=== PATIENT | male | born 1985 | race Caucasian/White ===

== ENCOUNTER 2018-04-04 22:37 | Emergency (ER) | payer BC ==
[2018-04-04] MEDS ORDERED: GLUCAGON 1 MG/VIAL ONE (22:55)
--- NOTE | 2018-04-04 23:37 | EDPHYS ---
Physician Documentation [facility] Name: Erik Bernal Age: 32 yrs Sex: Male : 1985 Arrival Date: 04/04/2018 Time: 22:38 Bed 19 Private MD: ED Physician Markos Otoole HPI: 04/04 23:34 This 32 yrs old Male presents to ER via Ambulatory with complaints of Foreign gs Body In Throat. 23:34 Onset: The symptoms/episode began/occurred acutely, just prior to arrival. The symptoms gs do not radiate. Associated signs and symptoms: Pertinent negatives: nausea and vomiting. The symptoms are described as sharp. Modifying factors: The symptoms are alleviated by nothing, the symptoms are aggravated by drinking liquids. Severity of pain: At its worst the pain was moderate in the emergency department the pain is unchanged. The patient has experienced similar episodes in the past, several times. Historical: - Allergies: 22:55 No Known Allergies; tl2 - Home Meds: 22:55 None [Active]; tl2 - PMHx: 22:55 None; tl2 - Immunization history:: Adult Immunizations up to date. - Social history:: Smoking status: Patient uses tobacco products, chewing tobacco. - Ebola Screening: : No symptoms or risks identified at this time. ROS: 23:34 All other systems are negative. gs Exam: 23:34 Head/Face: Normocephalic, atraumatic. Eyes: Pupils equal round and reactive to light, gs extra-ocular motions intact. Lids and lashes normal. Conjunctiva and sclera are non-icteric and not injected. Cornea within normal limits. Periorbital areas with no swelling, redness, or edema. ENT: Nares patent. No nasal discharge, no septal abnormalities noted. Tympanic membranes are normal and external auditory canals are clear. Oropharynx with no redness, swelling, or masses, exudates, or evidence of obstruction, uvula midline. Mucous membranes moist. Neck: Trachea midline, no thyromegaly or masses palpated, and no cervical lymphadenopathy. Supple, full range of motion without nuchal rigidity, or vertebral point tenderness. No Meningismus. Chest/axilla: Normal chest wall appearance and motion. Nontender with no deformity. No lesions are appreciated. Cardiovascular: Regular rate and rhythm with a normal S1 and S2. No gallops, murmurs, or rubs. Normal PMI, no JVD. No pulse deficits. Respiratory: Lungs have equal breath sounds bilaterally, clear to auscultation and percussion. No rales, rhonchi or wheezes noted. No increased work of breathing, no retractions or nasal flaring. Abdomen/GI: Soft, non-tender, with normal bowel sounds. No distension or tympany. No guarding or rebound. No evidence of tenderness throughout. Back: No spinal tenderness. No costovertebral tenderness. Full range of motion. Skin: Warm, dry with normal turgor. Normal color with no rashes, no lesions, and no evidence of cellulitis. MS/ Extremity: Pulses equal, no cyanosis. Neurovascular intact. Full, normal range of motion. Neuro: Awake and alert, GCS 15, oriented to person, place, time, and situation. Cranial nerves II-XII grossly intact. Motor strength 5/5 in all extremities. Sensory grossly intact. Cerebellar exam normal. Normal gait. 23:34 Constitutional: The patient appears alert, awake. Vital Signs: 22:55 BP 142 / 92; Pulse 82; Resp 20; Pulse Ox 97% on R/A; Weight 86.18 kg; Height 6 ft. 1 tl2 in. (185.42 cm); Pain 0/10; 23:49 BP 122 / 82; Pulse 80; Resp 18; Pulse Ox 98% on R/A; tl2 22:55 Body Mass Index 25.07 (86.18 kg, 185.42 cm) tl2 MDM: 22:59 Patient medically screened. gs 23:34 Differential diagnosis: non-specific abd pain, impacted food bolus, complete or gs partial. Data reviewed: vital signs, nurses notes. Response to treatment: the patient's symptoms have markedly improved after treatment, able to pass liquids will follow up with GI. 23:38 Counseling: I had a detailed discussion with the patient and/or guardian regarding: the gs historical points, exam findings, and any diagnostic results supporting the discharge/admit diagnosis, the presence of at least one elevated blood pressure reading (>120/80) during this emergency department visit. Special discussion: I have referred the patient to see his PCP for further evaluation of high blood pressure. Administered Medications: 22:58 Drug: Glucagon 1 mg Route: IVP; Site: right forearm; tl2 23:50 Follow up: Response: No adverse reaction; Marked relief of symptoms tl2 Disposition: 04/04/18 23:37 Discharged to Home. Impression: Esophageal obstruction. - Condition is Stable. - Discharge Instructions: Esophageal Stricture, Managing Your Hypertension. - Medication Reconciliation Form, Thank You Letter, Antibiotic Education, Prescription Opioid Use form. - Follow up: Franko Becerra MD; When: 2 - 3 days; Reason: Re-evaluation by your physician. Signatures: Kalie Dias RN RN tl2 Markos Otoole MD MD gs Corrections: (The following items were deleted from the chart) 23:50 23:37 04/04/2018 23:37 Discharged to Home. Impression: Esophageal obstruction. tl2 Condition is Stable. Forms are Medication Reconciliation Form, Thank You Letter, Antibiotic Education, Prescription Opioid Use. Follow up: Franko Becerra; When: 2 - 3 days; Reason: Re-evaluation by your physician. gs
--- NOTE | 2018-04-04 23:37 | ER ---
Nurse's Notes [facility] Name: Erik Bernal Age: 32 yrs Sex: Male : 1985 Arrival Date: 04/04/2018 Time: 22:38 Bed 19 Private MD: Diagnosis: Esophageal obstruction Presentation: 04/04 22:53 Presenting complaint: Patient states: Eating steak and has a piece stuck in his throat. tl2 No respiratory distress, pt able to swallow. Transition of care: patient was not received from another setting of care. Onset of symptoms was April 04, 2018 at 20:00. Risk Assessment: Do you want to hurt yourself or someone else? Patient reports no desire to harm self or others. Initial Sepsis Screen: Does the patient meet any 2 criteria? No. Patient's initial sepsis screen is negative. Does the patient have a suspected source of infection? No. Patient's initial sepsis screen is negative. Care prior to arrival: None. 22:53 Method Of Arrival: Ambulatory tl2 22:53 Acuity: ROBINSON 3 tl2 Triage Assessment: 22:55 General: Appears in no apparent distress. uncomfortable, Behavior is calm, cooperative, tl2 appropriate for age. Pain: Denies pain. EENT: Reports difficulty swallowing. Neuro: Level of Consciousness is awake, alert, obeys commands, Oriented to person, place, time, situation. Cardiovascular: Denies chest pain. Respiratory: Airway is patent Respiratory effort is even, unlabored, Respiratory pattern is regular, symmetrical. GI: No signs and/or symptoms were reported involving the gastrointestinal system. : No signs and/or symptoms were reported regarding the genitourinary system. Derm: Skin is pink, warm \T\ dry. Historical: - Allergies: 22:55 No Known Allergies; tl2 - Home Meds: 22:55 None [Active]; tl2 - PMHx: 22:55 None; tl2 - Immunization history:: Adult Immunizations up to date. - Social history:: Smoking status: Patient uses tobacco products, chewing tobacco. - Ebola Screening: : No symptoms or risks identified at this time. Screenin:56 Abuse screen: Denies threats or abuse. Nutritional screening: No deficits noted. tl2 Tuberculosis screening: No symptoms or risk factors identified. Fall Risk None identified. Assessment: 22:56 General: see triage assessment. tl2 23:30 Reassessment: Pt states that he feels like it may have gone down, Pt was able to hold tl2 down multiple sips of water. 23:49 Reassessment: Patient appears in no apparent distress at this time. Patient and/or tl2 family updated on plan of care and expected duration. Pain level reassessed. Patient is alert, oriented x 3, equal unlabored respirations, skin warm/dry/pink. Pt verbalized understanding of discharge instructions, need for follow up Patient states feeling better. Vital Signs: 22:55 BP 142 / 92; Pulse 82; Resp 20; Pulse Ox 97% on R/A; Weight 86.18 kg; Height 6 ft. 1 tl2 in. (185.42 cm); Pain 0/10; 23:49 BP 122 / 82; Pulse 80; Resp 18; Pulse Ox 98% on R/A; tl2 22:55 Body Mass Index 25.07 (86.18 kg, 185.42 cm) tl2 ED Course: 22:38 Patient arrived in ED. ds1 22:41 Markos Otoole MD is Attending Physician. gs 22:54 Triage completed. tl2 22:55 Arm band placed on right wrist. tl2 22:56 Patient has correct armband on for positive identification. Bed in low position. Call tl2 light in reach. Side rails up X 1. Adult w/ patient. 22:56 Inserted saline lock: 20 gauge in right forearm, using aseptic technique. Blood tl2 collected. placed by [employer]. 23:37 Franko Becerra MD is Referral Physician. gs 23:48 Kalie Dias RN is Primary Nurse. tl2 23:49 No provider procedures requiring assistance completed. IV discontinued, intact, tl2 bleeding controlled, No redness/swelling at site. Pressure dressing applied. Administered Medications: 22:58 Drug: Glucagon 1 mg Route: IVP; Site: right forearm; tl2 23:50 Follow up: Response: No adverse reaction; Marked relief of symptoms tl2 Outcome: 23:37 Discharge ordered by . gs 23:49 Discharged to home ambulatory, with family. tl2 23:49 Condition: stable 23:49 Discharge instructions given to patient, Instructed on discharge instructions, follow up and referral plans. Demonstrated understanding of instructions, follow-up care. 23:50 Patient left the ED. tl2 Signatures: Sparkle Quinn ds1 Kalie Dias, RN RN tl2 Markos Otoole MD MD gs
== END 2018-04-04 23:50 | disposition home or self-care (01) ==
LOC: ER 22:37
DX: K22.2 Esophageal obstruction (principal); Z87.891 Personal history of nicotine dependence
CPT/HCPCS: 96374; 99283; J1610